=== PATIENT | male | born 1955 | race Caucasian/White ===

== ENCOUNTER 2021-11-04 14:10 | Emergency (ER) | payer OTHER, SELFPAY ==
[2021-11-04] VITALS (13 sets, daily range): BP systolic 117–148; BP diastolic 68–80; PULSE 51–82; RESP 12–23; TEMP 37.2; O2SAT 97–99
--- NOTE | 2021-11-04 14:21 | DI.RAD.S_ITS ---
PROCEDURE: XR CHEST 1V INDICATIONS: chest pain TECHNIQUE: One view of the chest was acquired. COMPARISON: None. FINDINGS: Surgical changes and devices: None. Lungs and pleura: Lungs are clear. No pleural effusions or pneumothorax. Mediastinum: Mediastinal contours appear normal. Heart size is normal. Bones and chest wall: No suspicious bony lesions. Overlying soft tissues appear unremarkable. IMPRESSION: No acute cardiopulmonary disease process. Dictated by: Nichole Bravo MD, PhD on 11/04/2021 at 15:05 Approved by: Nichole Bravo MD, PhD on 11/04/2021 at 15:05
[2021-11-04 14:49] LABS: Add Manual Diff / Slide Review NO; Basophils Absolute Auto 0 /uL (0-100); Basophils Percent Auto 0.6 % (0-2); Eosinophils Absolute Auto 200 /uL (0-450); Eosinophils Percent Auto 3.1 % (2-4); Hematocrit 44.7 % (41-53); Hemoglobin 15.3 g/dL (13.5-17.5); Lymphocytes Absolute Auto 1500 /uL (1100-4500); Lymphocytes Percent Auto 21.6 % (25-40); Mean Corpuscular HGB Conc 34.1 % (30-36); Mean Corpuscular Hemoglobin 34.8 PG (26-34); Mean Corpuscular Volume 102.1 fL (80-100); Monocytes Absolute Auto 300 /uL (0-900); Monocytes Percent Auto 4.6 % (3-14); Neutrophils Absolute Auto 4900 /uL (1500-7000); Neutrophils Percent Auto 70.1 % (50-75); Platelet Count 191 X10^3/uL (150-400); Red Blood Cell Count 4.38 X10^6/uL (4.5-5.9); Red Cell Distribution Width 12.9 % (11.6-14.8)
[2021-11-04 15:02] LABS: Alanine Aminotransferase 26 IU/L (<50); Albumin 4.1 g/dL (3.5-5.0); Albumin Globulin Ratio 1.7 (1.0-2.8); Alkaline Phosphatase 61 U/L (38-126); Aspartate Aminotransferase 26 IU/L (17-59); BUN Creatinine Ratio 16.5 (6-22); Bilirubin Total 0.8 mg/dL (0.2-1.3); Blood Urea Nitrogen 13 mg/dL (9-20); Calcium 9.5 mg/dL (8.4-10.2); Carbon Dioxide 26 mmol/L (22-32); Chloride 109 mmol/L (98-107); Creatine Kinase 106 U/L (55-170); Estimated Glomerular Filt Rate > 60.0 mL/min (>60); Globulin 2.4 g/dL (1.7-4.1); Glucose 141 mg/dL (80-110); HEMOLYSIS < 15 (0-50); Lipase 49 U/L (23-300); Potassium 3.8 mmol/L (3.4-5.1); Sodium 138 mmol/L (137-145); Total Protein 6.5 g/dL (6.3-8.2)
[2021-11-04 15:13] LABS: Troponin I < 0.012 ng/mL (0.01-0.034)
[2021-11-04 15:17] LABS: CKMB % Relative Index 1.8 % (1.5-5.0); Creatine Kinase MB 1.96 ng/mL (<2.37)
--- NOTE | 2021-11-04 16:31 | DI.CT.S_ITS ---
PROCEDURE: CT ANGIO HEAD AND NECK INDICATIONS: lighteaded frequently TECHNIQUE: Pre-contrast 4.5 mm thick sections acquired from the foramen magnum to the vertex. After the administration of intravenous contrast, 1 mm thick sections acquired from the aortic arch through the [place]. Post-contrast 4.5 mm thick sections then re-acquired from the foramen magnum to the vertex. 3-dimensional guqpcck-ubnictezk-uectlwcgzy (MIP) and/or volume rendering reformats were acquired of the central intracranial vasculature and neck separately. COMPARISON: None. FINDINGS: Image quality: Excellent. BRAIN: CSF spaces: Ventricles are normal in size and shape. Basal cisterns are patent. No extra-axial fluid collections. Brain: No midline shift. No intracranial bleeds or masses. Cruz-white matter interface appears intact. Moderate cerebral and cerebellar volume loss with multifocal white matter chronic ischemic change noted. Skull and face: Calvarium and facial bones appear intact, without suspicious lesions. Orbits appear normal. Sinuses: Sinuses and mastoids are clear. HEAD CT ANGIOGRAPHY: Anterior circulation: Intracranial internal carotid arteries are normal in size and flow. Mild calcified atherosclerotic plaque noted involving the cavernous portions of both internal carotid arteries. The flow within the paired anterior cerebral arteries is normal and symmetric. The flow within the middle cerebral arteries is normal and symmetric. The anterior communicating artery is seen. No aneurysms are seen. Posterior circulation: There is a focal greater than 75 percent stenosis involving the distal left intradural vertebral artery. Right vertebral artery unremarkable. Normal basilar artery.. Flow within the posterior cerebral arteries is normal and symmetric. No aneurysms are seen. NECK CT ANGIOGRAPHY: Carotid system: The great vessels demonstrate a conventional anatomy as they arise from the aortic arch. The origins of the common carotid arteries appear patent. The common carotid arteries demonstrate normal caliber and courses. The bifurcation regions are both widely patent. Mild atherosclerotic plaque noted in both proximal internal carotid arteries. The internal carotid arteries demonstrate normal calibers and courses. Posterior circulation: The origins of the vertebral arteries both appear widely patent. The more superior extracranial portions of both vertebral arteries also demonstrate normal courses and calibers. They join to form a normal appearing basilar artery. Soft tissues: Visualized neck soft tissues demonstrate no suspicious abnormalities. Bones: No suspicious bony lesions. Visualized cervical spine appears normally aligned. IMPRESSION: 1. No evidence of large vessel occlusion, aneurysm or vascular malformation. 2. Focal greater than 75 percent atherosclerotic stenosis of the dural left vertebral artery. Right vertebral artery widely patent. 3. Atherosclerotic calcification in both proximal internal carotid arteries without hemodynamically significant stenosis utilizing NASCET criteria Any quantitative measurements of ICA stenosis were performed using NASCET criteria. Approved by: Lazaro Lundberg M.D. on 11/04/2021 at 16:23
--- NOTE | 2021-11-04 17:02 | ED.ARRPALP ---
HPI - Arrhythmia/Palpitations General Chief Complaint: Arrhythmia/Palpitations Stated Complaint: Dizzy Spells and Low Pulse Time Seen by Provider: 11/04/21 15:39 Source: patient Mode of arrival: Ambulatory History of Present Illness HPI narrative: Patient is a 65-year-old male who presents with ongoing intermittent dizziness. He states it has been ongoing for about 1 week it seems to be worse with positioning and standing up. He also states that food and coffee seem to make it worse. Feels like his heart rate slows he says he has been monitoring it and it goes down to 58. It is lightheadedness if not necessarily dizziness or spinning he has not passed out. He denies any chest pain or palpitations. However it is becoming more frequent. He denies any chest pain or palpitations. No numbness tingling or weakness. No prior history of CVA. He is on multiple blood pressure medications including verapamil metoprolol hydrochlorothiazide and losartan. Related Data Home Medications Medication Instructions Recorded Confirmed atorvastatin 10 mg tablet 10 mg PO BEDTIME 11/04/21 11/04/21 hydrochlorothiazide 25 mg tablet 25 mg PO DAILY 11/04/21 11/04/21 levothyroxine 50 mcg tablet 50 mcg PO DAILY 11/04/21 11/04/21 losartan 100 mg tablet 100 mg PO DAILY 11/04/21 11/04/21 metoprolol succinate 25 mg 25 mg PO DAILY 11/04/21 11/04/21 tablet,extended release 24 hr (Toprol XL) potassium chloride 10 mEq 20 meq PO DAILY 11/04/21 11/04/21 tablet,extended release verapamil 240 mg tablet,extended 240 mg PO BEDTIME 11/04/21 11/04/21 release 24 hr Allergies Allergy/AdvReac Type Severity Reaction Status Date / Time No Known Drug Allergies Allergy Verified 11/04/21 14:20 Review of Systems Review of Systems Narrative: GENERAL: Denies chills, fatigue, malaise, fever, sweats, travel HEENT: Denies sinus pain, ear pain, sore throat, difficulty swallowing, neck pain RESPIRATORY: Denies dyspnea, cough, wheezing, hemoptysis, sputum. CARDIOVASCULAR: Denies chest pain, palpitations, orthopnea, edema GASTROINTESTINAL: Denies nausea, vomiting, abdominal pain, diarrhea, constipation, melena. : Denies dysuria, frequency, incontinence, hematuria, urinary retention, flank pain. MUSCULOSKELETAL: Denies weakness, joint pain, or bony pain SKIN: No rash, no erythema, no pruritus NEUROLOGIC: See HPI PSYCHIATRIC: No concerning psychosocial issues. 12 point review of systems is negative except for those stated above and HPI Patient History Social History Smoking Status: Current some day smoker Smoking Status: Current some day smoker tobacco type: cigarettes and vaping Exam Initial Vital Signs Initial Vital Signs: Vital Signs Temperature 98.9 F 11/04/21 14:16 Pulse Rate 82 11/04/21 14:16 Respiratory Rate 18 11/04/21 14:16 Blood Pressure 148/73 H 11/04/21 14:16 Pulse Oximetry 98 11/04/21 14:16 GENERAL: Alert pleasant 65-year-old male in no acute distress in no acute distress. HEENT: Head atraumatic,EOMI, pupils reactive, face symmetric, moist mucous membranes CARDIOVASCULAR: Regular rate and rhythm without murmurs, rubs or gallops. RESPIRATORY: Breath sounds equal bilaterally, no wheezes rales or rhonchi. ABDOMEN: Soft, nontender. Normoactive bowel sounds all 4 quadrants. No guarding or rebound. EXTREMITIES: Normal range of motion, no clubbing or edema. Neurovascularly intact NEUROLOGICAL: Alert and oriented x4.Normal gait and speech. Cranial nerves II through XII grossly intact. Good mbhxep-co-thew, good cnff-vu-rtqa, strength equal bilaterally, no dysarthria or aphasia, sensation in tact to soft touch bilaterally, no visual changes, no facial droop SKIN: Warm, dry, no laceration, no petechiae, no rashes or lesions. Scores NIH Stroke Scale Level of Conciousness: Alert, keenly responsive Ask month/age: Answers both questions correctly. Open/close eyes, close hand: Performs both tasks correctly Best gaze horizontal: Normal Visual mcdaniel: No visual loss Facial palsy: Normal symetrical movement Left arm drift: No drift for full 10 sec Right arm drift: No drift for full 10 sec Left leg drift: No drift for full 5 sec Right leg drift: No drift for full 5 sec Limb ataxia: Absent Sensory on face/arms/legs: Normal, no sensory loss Best language: No aphasia, normal Dysarthria: Normal Extinction or inattention: No abnormality Total NIH Stroke scale score: 0 Course Orders Ordered: Discontinued Medications Sodium Chloride (Normal Saline 0.9%) 1,000 mls @ 1,000 mls/hr IV BOLUS ONE Stop: 11/04/21 18:28 Last Infusion: 11/04/21 18:36 Dose: 0 mls/hr Documented by: Admin: 11/04/21 17:40 Dose: 1,000 mls/hr Documented by: AGUSTO Vital Signs Vital signs: Vital Signs - 8 hr 11/04/21 14:16 11/04/21 14:35 11/04/21 15:00 Temperature 98.9 F Pulse Rate 82 76 63 Pulse Rate [Orthostatic Lying] Pulse Rate [Orthostatic Sitting] Pulse Rate [Orthostatic Standing] Respiratory Rate 18 14 20 Blood Pressure 148/73 H Blood Pressure [Orthostatic Lying] Blood Pressure [Orthostatic Sitting] Blood Pressure [Orthostatic Standing] Pulse Oximetry 98 99 98 11/04/21 15:30 11/04/21 16:00 11/04/21 16:15 Temperature Pulse Rate 57 L 55 L 56 L Pulse Rate [Orthostatic Lying] Pulse Rate [Orthostatic Sitting] Pulse Rate [Orthostatic Standing] Respiratory Rate 12 12 19 Blood Pressure 123/72 Blood Pressure [Orthostatic Lying] Blood Pressure [Orthostatic Sitting] Blood Pressure [Orthostatic Standing] Pulse Oximetry 97 98 98 11/04/21 16:30 11/04/21 17:00 11/04/21 17:17 Temperature Pulse Rate 57 L 60 55 L Pulse Rate [Orthostatic Lying] Pulse Rate [Orthostatic Sitting] Pulse Rate [Orthostatic Standing] Respiratory Rate 19 17 23 Blood Pressure 132/68 135/68 138/73 Blood Pressure [Orthostatic Lying] Blood Pressure [Orthostatic Sitting] Blood Pressure [Orthostatic Standing] Pulse Oximetry 97 98 98 11/04/21 17:18 11/04/21 17:21 11/04/21 17:30 Temperature Pulse Rate 63 54 L Pulse Rate [Orthostatic Lying] 64 Pulse Rate [Orthostatic Sitting] 56 L Pulse Rate [Orthostatic Standing] 69 Respiratory Rate 19 16 Blood Pressure 134/80 117/69 Blood Pressure [Orthostatic Lying] 135/68 Blood Pressure [Orthostatic Sitting] 138/73 Blood Pressure [Orthostatic Standing] 134/80 Pulse Oximetry 97 97 11/04/21 18:00 Temperature Pulse Rate 51 L Pulse Rate [Orthostatic Lying] Pulse Rate [Orthostatic Sitting] Pulse Rate [Orthostatic Standing] Respiratory Rate 15 Blood Pressure 128/79 Blood Pressure [Orthostatic Lying] Blood Pressure [Orthostatic Sitting] Blood Pressure [Orthostatic Standing] Pulse Oximetry 98 MDM - Arrhythmia/Palpitations Lab Data Result diagrams: 11/04/21 14:42 11/04/21 14:42 Labs: Lab Results 11/04/21 11/04/21 Range/Units 14:42 14:42 WBC 7.0 (4.5-11.0) X10^3/uL RBC 4.38 L (4.5-5.9) X10^6/uL Hgb 15.3 (13.5-17.5) g/dL Hct 44.7 (41-53) % MCV 102.1 H (80-100) fL MCH 34.8 H (26-34) PG MCHC 34.1 (30-36) % RDW 12.9 (11.6-14.8) % Plt Count 191 (150-400) X10^3/uL Neut % (Auto) 70.1 (50-75) % Lymph % (Auto) 21.6 L (25-40) % [place] % (Auto) 4.6 (3-14) % Eos % (Auto) 3.1 (2-4) % Baso % (Auto) 0.6 (0-2) % Neut # (Auto) 4900 (9188-1949) /uL Lymph # (Auto) 1500 (9878-7796) /uL [place] # (Auto) 300 (0-900) /uL Eos # (Auto) 200 (0-450) /uL Baso # (Auto) 0 (0-100) /uL Sodium 138 (137-145) mmol/L Potassium 3.8 (3.4-5.1) mmol/L Chloride 109 H (98-107) mmol/L Carbon Dioxide 26 (22-32) mmol/L BUN 13 (9-20) mg/dL Creatinine 0.79 (0.66-1.25) mg/dL Estimated GFR > 60.0 (>60) mL/min BUN/Creatinine Ratio 16.5 (6-22) Glucose 141 H (80-110) mg/dL Calcium 9.5 (8.4-10.2) mg/dL Magnesium 2.0 (1.6-2.3) mg/dL Total Bilirubin 0.8 (0.2-1.3) mg/dL AST 26 (17-59) IU/L ALT 26 (<50) IU/L Alkaline Phosphatase 61 (38-126) U/L Total Creatine Kinase 106 (55-170) U/L CK-MB (CK-2) 1.96 (<2.37) ng/mL CK-MB (CK-2) Rel Index 1.8 (1.5-5.0) % Troponin I < 0.012 (0.01-0.034) ng/mL Total Protein 6.5 (6.3-8.2) g/dL Albumin 4.1 (3.5-5.0) g/dL Globulin 2.4 (1.7-4.1) g/dL Albumin/Globulin Ratio 1.7 (1.0-2.8) Lipase 49 (23-300) U/L Imaging Data CTA - brain/neck: Radiologist's Impresson: PROCEDURE:? CT ANGIO HEAD AND NECK ? INDICATIONS:? lighteaded frequently ? TECHNIQUE:? Pre-contrast 4.5 mm thick sections acquired from the foramen magnum to the vertex.? After the administration of intravenous contrast, 1 mm thick sections acquired from the aortic arch through the [place].? Post-contrast 4.5 mm thick sections then re-acquired from the foramen magnum to the vertex.? 3-dimensional smysvlb-rrxqyvpzn-pigytcrvms (MIP) and/or volume rendering reformats were acquired of the central intracranial vasculature and neck separately. ? COMPARISON:? None. ? FINDINGS:? Image quality:? Excellent.? ? BRAIN:? CSF spaces:? Ventricles are normal in size and shape.? Basal cisterns are patent.? No extra-axial fluid collections.? ? Brain:? No midline shift.? No intracranial bleeds or masses.? Cruz-white matter interface appears intact.? Moderate cerebral and cerebellar volume loss with multifocal white matter chronic ischemic change noted. ? Skull and face:? Calvarium and facial bones appear intact, without suspicious lesions.? Orbits appear normal.? ? Sinuses:? Sinuses and mastoids are clear.? ? HEAD CT ANGIOGRAPHY:? Anterior circulation:? Intracranial internal carotid arteries are normal in size and flow.? Mild calcified atherosclerotic plaque noted involving the cavernous portions of both internal carotid arteries.? The flow within the paired anterior cerebral arteries is normal and symmetric.? The flow within the middle cerebral arteries is normal and symmetric.? The anterior communicating artery is seen.? No aneurysms are seen.? ? Posterior circulation:? There is a focal greater than 75 percent stenosis involving the distal left intradural vertebral artery.? Right vertebral artery unremarkable.? Normal basilar artery..? Flow within the posterior cerebral arteries is normal and symmetric.? No aneurysms are seen.? ? NECK CT ANGIOGRAPHY:? Carotid system:? The great vessels demonstrate a conventional anatomy as they arise from the aortic arch.? The origins of the common carotid arteries appear patent.? The common carotid arteries demonstrate normal caliber and courses.? The bifurcation regions are both widely patent.? Mild atherosclerotic plaque noted in both proximal internal carotid arteries.? The internal carotid arteries demonstrate normal calibers and courses.? ? Posterior circulation:? The origins of the vertebral arteries both appear widely patent.? The more superior extracranial portions of both vertebral arteries also demonstrate normal courses and calibers.? They join to form a normal appearing basilar artery.? ? Soft tissues:? Visualized neck soft tissues demonstrate no suspicious abnormalities.? ? Bones:? No suspicious bony lesions.? Visualized cervical spine appears normally aligned.? IMPRESSION:? ? 1. No evidence of large vessel occlusion, aneurysm or vascular malformation. ? 2. Focal greater than 75 percent atherosclerotic stenosis of the dural left vertebral artery.? Right vertebral artery widely patent. ? 3.? Atherosclerotic calcification in both proximal internal carotid arteries without hemodynamically significant stenosis utilizing NASCET criteria ? Any quantitative measurements of ICA stenosis were performed using NASCET criteria.? Approved by: Lazaro Lundberg M.D. on 11/04/2021 at 16:23? Chest x-ray: Radiologist's Impresson: PROCEDURE:? XR CHEST 1V ? INDICATIONS:? chest pain ? TECHNIQUE:? One view of the chest was acquired.? ? COMPARISON:? None. ? FINDINGS:? ? Surgical changes and devices:? None.? ? Lungs and pleura:? Lungs are clear.? No pleural effusions or pneumothorax.? ? Mediastinum:? Mediastinal contours appear normal.? Heart size is normal.? ? Bones and chest wall:? No suspicious bony lesions.? Overlying soft tissues appear unremarkable.? ? IMPRESSION:? No acute cardiopulmonary disease process. ? ? Dictated by: Nichole Bravo MD, PhD on 11/04/2021 at 15:05 ? ? ECG Data Interpretation: Normal sinus rhythm rate 75 KS interval 186 your if [address] changes MDM Narrative Medical decision making narrative: Patient has been having ongoing intermittent dizziness seems to be worse with position possibly with food as well. Multiple blood pressure medications. He states that wrap a mole has actually been for his migraines. Recommend following up with his primary care doctor for now let us hold the metoprolol to see if it helps, he is given a L of fluid. Orthostatics were negative however due to many medications this may be false negative. He has no neurologic deficits CT angio is negative. Overall feeling a little bit better. Discharge Plan Departure Patient Disposition: Home Clinical Impression: Intermittent lightheadedness Instructions: Vertigo Activity Restrictions/Additional Instructions: *You have been diagnosed with lightheadedness *What to do: I think of her lightheadedness may related to multiple medications. At this time I recommend holding metoprolol for at least 1-2 weeks to see if it helps improve her symptoms. Please discuss any further medicine management with your primary care provider *Continue to take medications as directed *Follow up with your primary care provider in 2-3 days or call [phone] *Return to ER if you should have passing out, increasing dizziness, palpitations, chest pain or any new, worsening or concerning symptoms Prescriptions: No Action verapamil 240 mg Tablet Extended Release 24hr 240 mg PO BEDTIME 0RF atorvastatin 10 mg tablet 10 mg PO BEDTIME 0RF potassium chloride 10 mEq Tablet Extended Release 20 meq PO DAILY 0RF levothyroxine [L-Thyroxine] 50 mcg Tablet 50 mcg PO DAILY 0RF hydrochlorothiazide 25 mg Tablet 25 mg PO DAILY 0RF metoprolol succinate [Toprol XL] 25 mg Tablet Extended Release 24 Hr 25 mg PO DAILY 0RF losartan 100 mg Tablet 100 mg PO DAILY 0RF
[2021-11-04] MEDS: SODIUM CHLORIDE 0.9% 1,000 ML 1000 ML IV (17:40)
== END 2021-11-04 18:37 | disposition home or self-care (01) ==
PROVIDERS: Emergency Provider Emergency Medicine
DX: R42 Dizziness and giddiness (principal); I10 Essential (primary) hypertension; F17.200 Nicotine dependence, unspecified, uncomplicated
CPT/HCPCS: 36415; 70496; 70498; 71045; 80053; 82550; 82553; 83690; 83735; 84484; 85025; 93005; 96360; 99284; Q9967